=== PATIENT | male | born 1960 | race Caucasian/White ===

== ENCOUNTER 2019-11-21 08:47 | Outpatient (CLI) | payer MEDICARE, SELFPAY ==
--- NOTE | ~2019-11-21 | CT_ITS ---
EXAMINATION: CT chest w con DATE: 11/21/2019 09:29 INDICATION: Malignant neoplasm of the lung TECHNIQUE: Transaxial computed tomographic images of the chest were obtained after the administration of 75 cc of Omnipaque 350 intravenous contrast. The dose-length product (DLP) was 356.70 mGy-cm. Ite rative reconstruction was used. COMPARISON: 06/24/2019, 03/21/2019 FINDINGS: There are unchanged paramediastinal reticular opacities and air bronchograms of the right u pper lobe. There is stable volume loss in the right hemithorax. A small right pleural effusion is pre sent. There is mild increase in airspace opacity posteriorly in the right upper lobe, likely worsenin g atelectasis. The heart size is normal. There is no pneumothorax. There is been mild decrease in siz e of the previously described subcarinal lymph node which measures 1.1 cm in shortest axial dimension , previously 1.3 cm. Changes of sternotomy are again noted in the manubrium with nonunion and osteone crosis versus osteomyelitis of the right margin of the manubrium. A stone is present in the nondisten ded gallbladder. There is a stable 3.4 cm cyst with septation in the right kidney. Mild chronic thora cic compression fractures are unchanged. 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 IMPRESSION: 1. Stable chronic changes in the superior mediastinal aspect of the right upper lobe, consistent with treated malignancy. Reviewed, dictated and finalized at location A.
[2019-11-21 09:16] LABS: Estimated Glomerular Filt Rate > 60
== END 2019-11-21 08:48 | disposition home or self-care (01) ==
LOC: ANHIMG 08:50
PROVIDERS: PCP Internal Medicine; Visit Provider Internal Medicine Hematology & Oncology
DX: C34.90 Malignant neoplasm of unspecified part of unspecified bronchus or lung (principal)
CPT/HCPCS: 36415; 71260; Q9967

== ENCOUNTER 2019-11-28 10:37 | Outpatient (CLI) | payer MEDICARE, SELFPAY ==
[2019-11-28 10:54] LABS: Basophils Absolute Auto 0.1 K/mm3 (0.0-0.1); Basophils Percent Auto 0.8 % (0.2-1.2); Eosinophils Absolute Auto 0.3 K/mm3 (0-0.3); Eosinophils Percent Auto 3.2 % (0-4.4); Hematocrit 45.7 % (42.0-52.0); Hemoglobin 14.4 g/dL (14.0-18.0); Immature Granulocyte Absolute 0.03 K/mm3 (0.00-0.031); Immature Granulocyte Percent A 0.3 % (0-0.5); Lymphocytes Absolute Auto 2.15 K/mm3 (0.9-3.2); Lymphocytes Percent Auto 24.4 % (18.3-44.2); Mean Corpuscular HGB Conc 31.5 g/dl (32-36); Mean Corpuscular Hemoglobin 29.7 pg (26-34); Mean Corpuscular Volume 94.2 fl (80-100); Mean Platelet Volume 9.3 fl (7.4-10.4); Monocytes Absolute Auto 0.8 K/mm3 (0.1-0.6); Monocytes Percent Auto 8.5 % (2.6-8.5); Neutrophils Absolute Auto 5.5 K/mm3 (1.3-6.7); Neutrophils Percent Auto 62.8 % (45.5-73.1); Platelet Count Result 217 k/mm3 (150-375); Red Blood Count 4.85 M/mm3 (4.6-6.20); Red Cell Distribution Width 17.2 % (11.5-14.5); White Blood Count 8.8 K/mm3 (4.5-10.0)
[2019-11-28 10:58] LABS: Blood Urea Nitrogen 15 mg/dL (8-26); Carbon Dioxide 29 mmol/L (22-30); Chloride 100 mmol/L (98-109); Estimated Glomerular Filt Rate > 60; Glucose 134 mg/dL (70-105); Potassium 4.7 mmol/L (3.5-4.9); Sodium 140 mmol/L (138-146)
[2019-11-28 12:34] LABS: Alanine Aminotransferase 22 U/L (4-50); Alkaline Phosphatase 167 U/L (38-126); Aspartate Amino Transferase 29 U/L (17-59); Bilirubin,Total 0.6 mg/dL (0.2-1.3); Blood Urea Nitrogen 15 mg/dL (9-20); Calcium 9.7 mg/dL (8.4-10.2); Carbon Dioxide 32 mmol/L (22-30); Chloride 102 mmol/L (98-107); Estimated Glomerular Filt Rate > 60; Glucose 135 mg/dL (75-110); Potassium 4.6 mmol/L (3.4-5.0); Sodium 138 mmol/L (137-145)
== END 2019-11-28 10:38 | disposition home or self-care (01) ==
PROVIDERS: PCP Internal Medicine; Visit Provider Internal Medicine Hematology & Oncology
DX: C34.90 Malignant neoplasm of unspecified part of unspecified bronchus or lung (principal)
CPT/HCPCS: 36415; 80048; 80053; 85025

== ENCOUNTER 2020-03-19 16:11 | Outpatient (RCR) | payer MEDICARE, MEDICAID, SELFPAY ==
[2020-03-19 17:42] LABS: Alanine Aminotransferase 34 U/L (4-50); Albumin Level 3.1 g/dL (3.5-5.1); Alkaline Phosphatase 272 U/L (38-126); Anion Gap 4 mmol/L (8-16); Aspartate Amino Transferase 36 U/L (17-59); Blood Urea Nitrogen 19 mg/dL (9-20); Calcium 9.3 mg/dL (8.4-10.2); Carbon Dioxide 32 mmol/L (22-30); Chloride 102 mmol/L (98-107); Cholesterol 105 mg/dL (0-200); Estimated Glomerular Filt Rate > 60; Glucose 102 mg/dL (75-110); HDL Direct 13 mg/dL; Potassium 3.4 mmol/L (3.4-5.0); Sodium 138 mmol/L (137-145); Triglycerides 83 mg/dL (<150)
[2020-03-19 17:57] LABS: LDL Cholesterol Direct 74 mg/dL
[2020-03-19 18:13] LABS: Prostate Specific Antigen 0.7 ng/mL (< OR = 4.0)
== END 2020-06-17 23:59 | disposition home or self-care (01) ==
LOC: ANHLAB 16:11
PROVIDERS: PCP Internal Medicine; Visit Provider Internal Medicine
DX: E78.2 Mixed hyperlipidemia (principal); E03.9 Hypothyroidism, unspecified; I95.9 Hypotension, unspecified; J44.9 Chronic obstructive pulmonary disease, unspecified; Z12.5 Encounter for screening for malignant neoplasm of prostate
CPT/HCPCS: 36415; 80053; 80061; 84153; 84443; G0103

== ENCOUNTER 2020-05-14 09:03 | Outpatient (CLI) | payer MEDICARE, SELFPAY ==
--- NOTE | ~2020-05-14 | CT_ITS ---
EXAMINATION:CT chest w con DATE: 05/14/2020 09:52 INDICATION: Lung cancer. TECHNIQUE: Computed tomography (CT) of the chest was performed with 75 mL Omnipaque 350 intravenous c ontrast. Automated exposure control and iterative reconstruction technique were employed. The dose-le ngth product (DLP) was 204.68 mGy-cm. COMPARISON: Chest CT 11/21/2019, 08/21/16 FINDINGS: There is mild emphysema. There is mild atelectasis in lingula. There is volume loss of righ t lung. There are extensive airspace opacities with cavitation in right upper lobe. There are airspac e opacities with volume loss and architectural distortion in right middle lobe medially. There is mil d peripheral atelectasis in right lower lobe. There is a small right pleural effusion. The heart size is normal. There are coronary artery calcifications. There is a small pericardial effusion. There is ill-defined soft tissue in the mediastinum on the right and in the right anterior chest wall. There is mild stenosis of the superior vena cava. 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 There is a 3.9 cm cyst in right kidney. There is mild periportal lymphadenopat hy. There are old healed right rib fractures. Again seen are changes of sternotomy of the manubrium o f the sternum with nonunion. IMPRESSION: 1. Worsened airspace opacities with volume loss and cavitation in right upper lobe, consistent with r adiation fibrosis without or with superimposed infection. Stable radiation fibrosis in right lower lo be and right middle lobe. 2. Stable large distribution of ill-defined soft tissue attenuation in the right side of the mediasti num. Large distribution of ill-defined soft tissue attenuation in the adjacent right anterior chest w all with mild worsening inferiorly. These findings may be predominantly changes of radiation therapy without or with superimposed infection. Note that the volume of abnormal tissue in the anterior right mediastinum is smaller than on the pretreatment imaging, consistent with improvement in the neoplasm component. Reviewed, dictated and finalized at location B. GENCY VETERINARY ASSISTANT IMPRESSION: 1. Worsened airspace opacities with volume loss and cavitation in right upper l obe, consistent with radiation fibrosis without or with superimposed infection. Stable radiation fibrosis in right lower lobe and right middle lobe. 2. Stable large distribution of ill-defined soft tissue attenuation in the righ t side of the mediastinum. Large distribution of ill-defined soft tissue attenu ation in the adjacent right anterior chest wall with mild worsening inferiorly. These findings may be predominantly changes of radiation therapy without or wi th superimposed infection. Note that the volume of abnormal tissue in the anter ior right mediastinum is smaller than on the pretreatment imaging, consistent w ith improvement in the neoplasm component.
[2020-05-14 09:41] LABS: Estimated Glomerular Filt Rate > 60
== END 2020-05-14 09:04 | disposition home or self-care (01) ==
PROVIDERS: PCP Internal Medicine; Visit Provider Internal Medicine Hematology & Oncology
DX: C34.90 Malignant neoplasm of unspecified part of unspecified bronchus or lung (principal); J43.9 Emphysema, unspecified; J90 Pleural effusion, not elsewhere classified; I25.10 Atherosclerotic heart disease of native coronary artery without angina pectoris; J98.11 Atelectasis; I87.1 Compression of vein; N28.1 Cyst of kidney, acquired; I82.290 Acute embolism and thrombosis of other thoracic veins
CPT/HCPCS: 71260; Q9967

== ENCOUNTER 2020-05-26 08:58 | Outpatient (CLI) | payer MEDICARE, SELFPAY ==
[2020-05-26 09:14] LABS: Basophils Absolute Auto 0.1 K/mm3 (0.0-0.1); Basophils Percent Auto 0.8 % (0.2-1.2); Eosinophils Absolute Auto 0.2 K/mm3 (0-0.3); Eosinophils Percent Auto 2.4 % (0-4.4); Hematocrit 41.9 % (42.0-52.0); Hemoglobin 13.2 g/dL (14.0-18.0); Immature Granulocyte Absolute 0.04 K/mm3 (0.00-0.031); Immature Granulocyte Percent A 0.5 % (0-0.5); Lymphocytes Absolute Auto 1.61 K/mm3 (0.9-3.2); Lymphocytes Percent Auto 21.8 % (18.3-44.2); Mean Corpuscular HGB Conc 31.5 g/dl (32-36); Mean Corpuscular Hemoglobin 31.5 pg (26-34); Mean Platelet Volume 9.4 fl (7.4-10.4); Monocytes Absolute Auto 0.6 K/mm3 (0.1-0.6); Monocytes Percent Auto 8.1 % (2.6-8.5); Neutrophils Absolute Auto 4.9 K/mm3 (1.3-6.7); Neutrophils Percent Auto 66.4 % (45.5-73.1); Platelet Count Result 207 k/mm3 (150-375); Red Blood Count 4.19 M/mm3 (4.6-6.20); Red Cell Distribution Width 16.1 % (11.5-14.5); White Blood Count 7.4 K/mm3 (4.5-10.0)
[2020-05-26 09:18] LABS: Blood Urea Nitrogen 14 mg/dL (8-26); Carbon Dioxide 33 mmol/L (22-30); Chloride 101 mmol/L (98-109); Estimated Glomerular Filt Rate > 60; Glucose 89 mg/dL (70-105); Potassium 4.8 mmol/L (3.5-4.9); Sodium 143 mmol/L (138-146)
[2020-05-26 12:35] LABS: Alanine Aminotransferase 27 U/L (4-50); Albumin Level 3.7 g/dL (3.5-5.1); Alkaline Phosphatase 224 U/L (38-126); Anion Gap 3 mmol/L (8-16); Aspartate Amino Transferase 36 U/L (17-59); Bilirubin,Total 0.7 mg/dL (0.2-1.3); Blood Urea Nitrogen 15 mg/dL (9-20); Calcium 9.2 mg/dL (8.4-10.2); Carbon Dioxide 36 mmol/L (22-30); Chloride 103 mmol/L (98-107); Estimated Glomerular Filt Rate > 60; Glucose 90 mg/dL (75-110); Potassium 4.7 mmol/L (3.4-5.0); Sodium 142 mmol/L (137-145)
== END 2020-05-26 08:59 | disposition home or self-care (01) ==
LOC: ANHLAB 09:00
PROVIDERS: PCP Internal Medicine; Visit Provider Internal Medicine Hematology & Oncology
DX: C34.90 Malignant neoplasm of unspecified part of unspecified bronchus or lung (principal)
CPT/HCPCS: 36415; 80048; 80053; 85025

== ENCOUNTER 2020-06-15 12:17 | Outpatient (CLI) | payer MEDICARE, MEDICAID, SELFPAY ==
[2020-06-15 13:42] LABS: Prostate Specific Antigen 0.9 ng/mL (< OR = 4.0)
== END 2020-06-15 12:18 | disposition home or self-care (01) ==
PROVIDERS: PCP Internal Medicine; Visit Provider Internal Medicine
DX: Z12.5 Encounter for screening for malignant neoplasm of prostate (principal); E03.9 Hypothyroidism, unspecified
CPT/HCPCS: 36415; 84153; 84443; G0103

== ENCOUNTER 2020-08-23 11:49 | Outpatient (CLI) | payer MEDICARE, MEDICAID, SELFPAY ==
--- NOTE | ~2020-08-23 | XR_ITS ---
EXAMINATION: XR abdomen/kub 1V EXAM DATE: 08/23/2020 12:15 INDICATION: R14.0 - Abdominal distension (gaseous) times 9 days. TECHNIQUE: Frontal projection(s) of the abdomen for interpretation. Comparison is made to prior exami nation from 02/20/2017. FINDINGS: There is expected amount of colonic stool and gas. No small bowel dilation, nonobstructiv e bowel gas pattern. Possible punctate bilateral nephrolithiasis. There is no organomegaly suspect ed. Right basilar scarring/atelectasis. Hardware in the left hip. IMPRESSION: Possible punctate nephrolithiasis. Expected amount of colonic contents. Reviewed, dictated and finalized at location A. ING IN HAND IMPRESSION: Possible punctate nephrolithiasis. Expected amount of colonic cont ents.
== END 2020-08-23 11:50 | disposition home or self-care (01) ==
LOC: ANHIMG 11:58
PROVIDERS: PCP Internal Medicine; Visit Provider Internal Medicine
DX: R14.0 Abdominal distension (gaseous) (principal)
CPT/HCPCS: 74018

== ENCOUNTER 2020-08-29 08:43 | Emergency (ER) | payer MEDICARE, MEDICAID, SELFPAY ==
--- NOTE | ~2020-08-29 | CT_ITS ---
EXAMINATION: CT abdomen pelvis w con DATE: 08/29/2020 10:08 INDICATION: Abdominal pain and distention. Constipation. TECHNIQUE: Computed tomography (CT) of the abdomen and pelvis was performed with 100 cc Omnipaque 350 intravenous contrast. Automated exposure control and iterative reconstruction technique were employe d. Exam dose: 755.52 mGy-cm total exam DLP. COMPARISON: 10/19/2017 CT chest abdomen pelvis 08/23/2020 KUB FINDINGS: The left lower lung is clear. There is compressive atelectasis in the right lower lung involving middle and lower lobes due to larg e right pleural effusion. There is mild ascites. There is surface nodularity of liver suggesting cirrhosis. No hepatic space-oc cupying mass lesion is detected. Spleen is upper limits of normal size. No pancreatic mass lesion, calcification or pancreatic duct di latation. Cholelithiasis. Borderline thickening of the gallbladder wall. No bile duct or pancreatic duct dilata tion is evident. However there are distal common bile duct calculi. Normal morphology of the adrenal glands. Multilocular up to approximately 3.8 cm upper pole right renal cyst. Approximately 2 mm nonobstructing right renal calculus. Approximately 5 nonobstructing left renal calculi, measuring 5 mm the left. No ureteral calculus or hydroureteronephrosis. Prostate enlargement and prostate calcifications. There is mild diffuse bladder wall thickening. Small fat-containing left inguinal hernia. There is atherosclerotic calcification of the abdominal aorta but no aneurysm. No intraperitoneal or retroperitoneal or pelvic mass lesion or adenopathy. There is nonspecific prominent soft tissue thickening of the wall of the gastric antrum There is diverticulosis of left and right colon; no CT evidence diverticulitis. There are nondilated fluid containing small bowel segments and small bowel air-fluid levels, which ma y be due to mild adynamic ileus or enteritis. No bowel obstruction, bowel wall thickening, pneumatosi s or intraperitoneal free air. Intramedullary device in left femur. Included skeletal structures are otherwise unremarkable. IMPRESSION: Choledocholithiasis Cholelithiasis Mild ascites Cirrhosis Nonspecific thickening of the wall of the gastric antrum; consider follow-up imaging and perhaps endo scopy as clinically appropriate Nondilated fluid containing small bowel segments and air-fluid levels which may be due to mild adynam ic ileus or enteritis Diverticulosis of left and right colon 3.8 cm upper pole right renal multilocular cyst Bilateral nonobstructive nephrolithiasis Reviewed, dictated and finalized at Location [facility]. Reviewed, dictated and finalized at location A. UNITY AFFAIRS MANAGER IMPRESSION: Choledocholithiasis Cholelithiasis Mild ascites Cirrhosis Nonspecific thickening of the wall of the gastric antrum; consider follow-up im aging and perhaps endoscopy as clinically appropriate Nondilated fluid containing small bowel segments and air-fluid levels which may be due to mild adynamic ileus or enteritis Diverticulosis of left and right colon 3.8 cm upper pole right renal multilocular cyst Bilateral nonobstructive nephrolithiasis
[2020-08-29 08:48] VITALS: BP 112/64; PULSE 103; RESP 18; TEMP 36.1; O2SAT 98
--- NOTE | 2020-08-29 08:52 | ED.ABDPAIN ---
HPI - Abdominal Pain General Chief Complaint: Abdominal Pain Stated Complaint: bowel issues Time Seen by Provider: 08/29/20 08:51 History of Present Illness HPI narrative: 60 yo male w/ h/o lung cancer presents to the ED for constipation. He reports that for the past 15 days he has felt bloated and had difficulty having a bowel movement. He says that for several days he was not able to pass flatus or burp either. He has been on miralax. He did have a very small watery bowel movement this morning, which provided a small amount of temporary relief. Related Data Home Medications Medication Instructions Recorded Confirmed apple cider vinegar 300 mg PO DAILY 04/30/19 08/29/20 ascorbic acid (vitamin C) 100 mg PO DAILY 04/30/19 08/29/20 ibuprofen 200 mg PO Q6H PRN 04/30/19 08/29/20 gp-ea-RZ-vit F-alamz-[id number]-coQ10 1 cap PO DAILY 04/30/19 08/29/20 [Daily Multivitamin] ipratropium 0.5 mg-albuterol 3 mg 3 ml INHALATION Q4H PRN 08/05/19 08/29/20 (2.5 mg base)/3 mL nebulization soln arginine HCl (L-arginine) 1,000 mg 1,000 mg PO DAILY 05/12/20 08/29/20 tablet atorvastatin 20 mg PO DAILY 08/29/20 08/29/20 levothyroxine 150 mcg PO DAILY 08/29/20 08/29/20 Allergies Allergy/AdvReac Type Severity Reaction Status Date / Time No Known Allergies Allergy Verified 08/29/20 08:56 Review of Systems Review of Systems: All systems reviewed & are unremarkable except as noted in HPI and below Constitutional: Constitutional: Denies fever(s) Eyes: Eyes: Reports no additional eye complaints ENT: Reports system reviewed and no additional complaints, except as documented Cardiovascular: Cardiovascular: Denies chest pain Respiratory: Comments: HART Gastrointestinal: Gastrointestinal: Reports bloating, Reports constipation and Denies vomiting Genitourinary: Genitourinary: Denies hematuria and Denies dysuria Neurologic: Denies dizziness PMFSH Past Medical History Medical History Abscess of chest Chronic obstructive pulmonary disease, unspecified Hypothyroidism Mixed hyperlipidemia Nicotine dependence, other tobacco product, uncomplicated Non-small cell lung cancer POOJA (obstructive sleep apnea) Surgical History Surgical History History of lung surgery Family History Family History Father Diabetes mellitus Family history of Alzheimer's disease Mother Hypertension Family history of chronic obstructive pulmonary disease Family history of sleep apnea Family history of malignant neoplasm Sibling Patient's sister is in good health Social History Social History Smoking packs per day: 1 Smoking cigarettes per day: 20.0 Smoking status: Current every day smoker (pack a day) Exam Const: General: no acute distress, alert and ill appearing Orientation/consciousness: patient oriented x3 HENMT: Head: normal to inspection Resp: Effort & Inspection: normal respiratory effort Auscultation: crackles on the right in the lower lung weldon Cardio: Rate: regular rate Rhythm: regular rhythm GI: Inspection: distended GI Palp: No Tenderness to palpation present (GI) and No Guarding due to palpation present (GI) Skin: General skin exam: normal color Neuro: General: patient oriented x3, moves all extremities, no focal motor deficits and CN's II-XI intact bilaterally Speech: normal speech Gait exam (Neuro): Normal gait present Extrem: General: normal to inspection Course Course Emergency Course: I spoke with Dr. Cantor about the patient's results. He suggested a surgical consult and hospital admission. I could not find a reason to consult surgery, but I did contact Dr. Pineda. He suggested Reglan, tap water enema, and magnesium citrate. He did not believe that there was necessarily a re
[2020-08-29 09:25] LABS: Basophils Absolute Auto 0.1 K/mm3 (0.0-0.1); Basophils Percent Auto 0.6 % (0.2-1.2); Eosinophils Absolute Auto 0.2 K/mm3 (0-0.3); Eosinophils Percent Auto 1.9 % (0-4.4); Hematocrit 35.2 % (42.0-52.0); Hemoglobin 11.2 g/dL (14.0-18.0); Immature Granulocyte Absolute 0.05 K/mm3 (0.00-0.031); Immature Granulocyte Percent A 0.5 % (0-0.5); Lymphocytes Absolute Auto 1.51 K/mm3 (0.9-3.2); Lymphocytes Percent Auto 16.2 % (18.3-44.2); Mean Corpuscular HGB Conc 31.8 g/dl (32-36); Mean Corpuscular Hemoglobin 31.4 pg (26-34); Mean Corpuscular Volume 98.6 fl (80-100); Mean Platelet Volume 9.5 fl (7.4-10.4); Monocytes Absolute Auto 0.9 K/mm3 (0.1-0.6); Monocytes Percent Auto 9.3 % (2.6-8.5); Neutrophils Absolute Auto 6.7 K/mm3 (1.3-6.7); Neutrophils Percent Auto 71.5 % (45.5-73.1); Platelet Count Result 240 k/mm3 (150-375); Red Blood Count 3.57 M/mm3 (4.6-6.20); Red Cell Distribution Width 15.7 % (11.5-14.5); White Blood Count 9.3 K/mm3 (4.5-10.0)
[2020-08-29 09:40] LABS: Alanine Aminotransferase 18 U/L (4-50); Albumin Level 3.5 g/dL (3.5-5.1); Alkaline Phosphatase 208 U/L (38-126); Anion Gap 3 mmol/L (8-16); Aspartate Amino Transferase 33 U/L (17-59); Bilirubin,Total 0.6 mg/dL (0.2-1.3); Blood Urea Nitrogen 14 mg/dL (9-20); Carbon Dioxide 33 mmol/L (22-30); Chloride 100 mmol/L (98-107); Estimated CRCL calculation 74 ml/min; Estimated Glomerular Filt Rate > 60; Glucose 97 mg/dL (75-110); Lipase 158 U/L (23-300); Potassium 4.4 mmol/L (3.4-5.0); Sodium 136 mmol/L (137-145)
[2020-08-29 09:50] LABS: Add Urine Microscopic? YES; Appearance Urine Clear (Clear); Bacteria Urine Trace /hpf; Bilirubin Urine Negative (Negative); Blood Urine Negative (Negative); Color Urine Yellow (Yellow); Glucose Urine UA Negative (Negative); Ketones Urine Negative (Negative); Leukocyte Esterase Ur Negative LEU/UL (Negative); Mucus Urine Rare /lpf; Nitrate Urine Negative (Negative); Protein Urine 1+ mg/dL (Negative); Specific Grav Ur 1.023 (1.001-1.035); WBC Urine 0-3 /hpf
[2020-08-29 10:20] VITALS: BP 111/66; PULSE 100; RESP 20; O2SAT 99
[2020-08-29 10:46] LABS: NT Pro B Type Natriuretic Pept 565 PG/ML (5-100)
[2020-08-29 11:58] VITALS: BP 100/68; PULSE 100; RESP 20; O2SAT 98
[2020-08-29] MEDS: METOCLOPRAMIDE HCL INJ 10 MG/2 ML VIAL IV PUSH (13:14)
[2020-08-29 13:16] VITALS: BP 106/77; PULSE 103; RESP 20; O2SAT 99
[2020-08-29] MEDS: MAGNESIUM CITRATE 300 ML BTL PO (14:15)
[2020-08-29 15:33] VITALS: BP 102/78; PULSE 99; RESP 20; O2SAT 99
== END 2020-08-29 15:35 | disposition home or self-care (01) ==
PROVIDERS: Emergency Provider Emergency Medicine; PCP Internal Medicine
DX: K56.0 Paralytic ileus (principal); J44.9 Chronic obstructive pulmonary disease, unspecified; E03.9 Hypothyroidism, unspecified; E78.2 Mixed hyperlipidemia; G47.33 Obstructive sleep apnea (adult) (pediatric); Z85.118 Personal history of other malignant neoplasm of bronchus and lung; F17.210 Nicotine dependence, cigarettes, uncomplicated; K80.50 Calculus of bile duct without cholangitis or cholecystitis without obstruction; K80.20 Calculus of gallbladder without cholecystitis without obstruction; R18.8 Other ascites; K74.60 Unspecified cirrhosis of liver; K57.90 Diverticulosis of intestine, part unspecified, without perforation or abscess without bleeding; N28.1 Cyst of kidney, acquired; N20.0 Calculus of kidney
CPT/HCPCS: 36415; 74177; 80053; 81001; 83690; 83880; 85025; 96374; 99284; A9270; J2765; Q9967

== ENCOUNTER 2020-09-14 09:07 | Outpatient (CLI) | payer MEDICARE, MEDICAID, SELFPAY ==
--- NOTE | ~2020-09-14 | XR_ITS ---
EXAMINATION: XR UGIAC w barium swallow EXAM DATE: 09/14/2020 09:51 INDICATION: R93.5 - Abnormal findings on diagnostic imaging of other abdomen, CT dated 08/29/2020. Blo ating. TECHNIQUE: Limited single and double contrast barium esophagram and upper GI examination was performe d according to patient's ability (difficulty positioning on table and became short of breath length d own). The DAP for this procedure was 2.0 Gycm2. Correlation is made to CT abdomen 08/29/2020. FINDINGS: The pharynx is symmetric and without evidence of mass lesion or mucosal irregularity. Ther e is no esophageal stricture, diverticulum or mass identified. Gastroesophageal junction is unremark able. Gastroesophageal reflux was demonstrated on examination. There is gastric wall thickening, ulceration along the antrum superiorly with contained ulceration ca vity measuring about 1 cm in size. Differential diagnosis includes peptic ulcer disease, primary shahrzad fabiana cancer and metastatic disease. IMPRESSION: 1. Gastric antral wall thickening, deep ulceration. Malignancy and peptic ulcer disease are equally p ossible based on imaging. Please clinically correlate, consider endoscopy. 2. Gastroesophageal reflux. Reviewed, dictated and finalized at location A. IMPRESSION: 1. Gastric antral wall thickening, deep ulceration. Malignancy and peptic ulcer disease are equally possible based on imaging. Please clinically correlate, co nsider endoscopy. 2. Gastroesophageal reflux.
== END 2020-09-14 09:08 | disposition home or self-care (01) ==
PROVIDERS: PCP Internal Medicine; Visit Provider Internal Medicine
DX: K21.9 Gastro-esophageal reflux disease without esophagitis (principal)
CPT/HCPCS: 74246

== ENCOUNTER 2020-09-25 13:26 | Outpatient (CLI) | payer MEDICARE, SELFPAY ==
[2020-09-25 14:14] LABS: Hematocrit 28.4 % (42.0-52.0); Hemoglobin 8.8 g/dL (14.0-18.0); Mean Corpuscular Hemoglobin 30.1 pg (26-34); Mean Corpuscular Volume 97.3 fl (80-100); Mean Platelet Volume 9.8 fl (7.4-10.4); Platelet Count Result 308 k/mm3 (150-375); Red Blood Count 2.92 M/mm3 (4.6-6.20); Red Cell Distribution Width 15.1 % (11.5-14.5); White Blood Count 9.3 K/mm3 (4.5-10.0)
[2020-09-25 14:23] LABS: Alanine Aminotransferase 13 U/L (4-50); Albumin Level 3.5 g/dL (3.5-5.1); Alkaline Phosphatase 206 U/L (38-126); Aspartate Amino Transferase 23 U/L (17-59); Bilirubin,Total 0.5 mg/dL (0.2-1.3)
== END 2020-09-25 13:27 | disposition home or self-care (01) ==
LOC: ANHLAB 13:34
PROVIDERS: PCP Internal Medicine
DX: R14.0 Abdominal distension (gaseous) (principal); K92.1 Melena
CPT/HCPCS: 36415; 80076; 85027

== ENCOUNTER 2020-10-08 10:35 | Outpatient (CLI) | payer MEDICARE, MEDICAID, SELFPAY ==
[2020-10-08 12:17] LABS: Hematocrit 28.6 % (42.0-52.0); Hemoglobin 8.8 g/dL (14.0-18.0); Mean Corpuscular HGB Conc 30.8 g/dl (32-36); Mean Corpuscular Hemoglobin 27.5 pg (26-34); Mean Corpuscular Volume 89.4 fl (80-100); Mean Platelet Volume 9.8 fl (7.4-10.4); Platelet Count Result 353 k/mm3 (150-375); Red Cell Distribution Width 15.1 % (11.5-14.5); White Blood Count 10.3 K/mm3 (4.5-10.0)
[2020-10-08 12:35] LABS: INR 1.2; Prothrombin Time 16.2 Seconds (11.1-14.7)
[2020-10-08 12:41] LABS: Alanine Aminotransferase 9 U/L (4-50); Albumin Level 3.7 g/dL (3.5-5.1); Alkaline Phosphatase 183 U/L (38-126); Aspartate Amino Transferase 23 U/L (17-59); Bilirubin,Total 0.7 mg/dL (0.2-1.3); Blood Urea Nitrogen 28 mg/dL (9-20); Calcium 8.8 mg/dL (8.4-10.2); Carbon Dioxide > 40 mmol/L (22-30); Chloride 85 mmol/L (98-107); Estimated Glomerular Filt Rate 56; Glucose 129 mg/dL (75-110); Potassium 3.6 mmol/L (3.4-5.0); Sodium 132 mmol/L (137-145)
[2020-10-08 12:44] LABS: Blood Urea Nitrogen 26 mg/dL (9-20); Calcium 8.8 mg/dL (8.4-10.2); Carbon Dioxide > 40 mmol/L (22-30); Chloride 86 mmol/L (98-107); Estimated Glomerular Filt Rate 56; Glucose 130 mg/dL (75-110); Potassium 3.6 mmol/L (3.4-5.0); Sodium 133 mmol/L (137-145)
[2020-10-08 13:54] LABS: Folic Acid > 20.0 ng/mL (2.76->20)
== END 2020-10-08 10:36 | disposition home or self-care (01) ==
PROVIDERS: PCP Internal Medicine; Referring Provider Internal Medicine Gastroenterology; Visit Provider Nurse Practitioner
DX: R60.9 Edema, unspecified (principal); K70.31 Alcoholic cirrhosis of liver with ascites
CPT/HCPCS: 29581; 36415; 80048; 80053; 82607; 82746; 85027; 85610

== ENCOUNTER 2020-10-19 13:25 | Outpatient (CLI) | payer MEDICARE, SELFPAY ==
[2020-10-19 14:11] LABS: Hematocrit 34.1 % (42.0-52.0); Hemoglobin 10.3 g/dL (14.0-18.0)
[2020-10-19 14:16] LABS: Anion Gap 3 mmol/L (8-16); Blood Urea Nitrogen 36 mg/dL (9-20); Calcium 10.2 mg/dL (8.4-10.2); Carbon Dioxide 39 mmol/L (22-30); Chloride 93 mmol/L (98-107); Estimated Glomerular Filt Rate 44; Glucose 110 mg/dL (75-110); Potassium 4.8 mmol/L (3.4-5.0); Sodium 135 mmol/L (137-145)
[2020-10-19 14:38] LABS: Iron 26 ug/dL (49-181)
[2020-10-19 14:47] LABS: Percent Iron Saturation 6 % (20-50)
== END 2020-10-19 13:26 | disposition home or self-care (01) ==
PROVIDERS: PCP Internal Medicine; Visit Provider Internal Medicine
DX: D64.9 Anemia, unspecified (principal); I89.0 Lymphedema, not elsewhere classified
CPT/HCPCS: 36415; 80048; 82728; 83540; 83550; 85014; 85018

== ENCOUNTER 2020-10-29 14:41 | Outpatient (CLI) | payer MEDICARE, SELFPAY ==
[2020-10-29 15:18] LABS: Hematocrit 31.6 % (42.0-52.0); Hemoglobin 9.3 g/dL (14.0-18.0); Mean Corpuscular HGB Conc 29.4 g/dl (32-36); Mean Corpuscular Hemoglobin 25.3 pg (26-34); Mean Corpuscular Volume 86.1 fl (80-100); Mean Platelet Volume 9.6 fl (7.4-10.4); Platelet Count Result 318 k/mm3 (150-375); Red Blood Count 3.67 M/mm3 (4.6-6.20); Red Cell Distribution Width 16.6 % (11.5-14.5); White Blood Count 10.8 K/mm3 (4.5-10.0)
[2020-10-29 15:31] LABS: Alanine Aminotransferase 15 U/L (4-50); Albumin Level 3.7 g/dL (3.5-5.1); Alkaline Phosphatase 327 U/L (38-126); Anion Gap 3 mmol/L (8-16); Aspartate Amino Transferase 36 U/L (17-59); Bilirubin,Total 0.8 mg/dL (0.2-1.3); Blood Urea Nitrogen 21 mg/dL (9-20); Calcium 10.7 mg/dL (8.4-10.2); Carbon Dioxide 33 mmol/L (22-30); Chloride 96 mmol/L (98-107); Estimated Glomerular Filt Rate > 60; Glucose 93 mg/dL (75-110); Potassium 4.8 mmol/L (3.4-5.0); Sodium 132 mmol/L (137-145)
== END 2020-10-29 14:42 | disposition home or self-care (01) ==
LOC: ANHLAB 14:45
PROVIDERS: PCP Internal Medicine; Visit Provider Internal Medicine Gastroenterology
DX: D50.8 Other iron deficiency anemias (principal)
CPT/HCPCS: 36415; 80053; 85027

== ENCOUNTER 2020-11-16 09:28 | Outpatient (CLI) | payer MEDICARE, MEDICAID, SELFPAY ==
--- NOTE | ~2020-11-16 | CT_ITS ---
EXAMINATION: CT diagnostic chest w con DATE: 11/16/2020 10:00 INDICATION: Lung cancer TECHNIQUE: Transaxial computed tomographic images of the chest were obtained after the administration of 75 cc of Omnipaque 350 intravenous contrast. The dose-length product (DLP) was 270.59 mGy-cm. Ite rative reconstruction was used. COMPARISON: 05/14/2020 FINDINGS: Volume loss, cavitation, and airspace opacities persist in the right upper lobe without sig nificant change. A small to moderate-sized right pleural effusion has increased in size. There are pl eural-based opacities of the right lower lobe. There is new erosion of the right fifth rib anteriorly at the costochondral junction with an approximately 7.4 x 4.8 cm fluid collection with peripheral en hancement in the right anterior chest wall. This reflects an increase in size of the previously descr ibed soft tissue attenuation seen anteriorly in the right anterior chest wall. 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 The heart size is carlos l. A 3.9 cm cyst is noted in the right kidney upper pole. There appears to be developing gastrohepati c ligament lymphadenopathy. IMPRESSION: 1. Enlarging area of fluid and soft tissue attenuation in the right anterior chest wall with erosion of the anterior right fifth rib. Findings could reflect infection versus treatment change. Fluid cirilo ection would be amenable to percutaneous sampling with caution to avoid overlying chest wall collater als. 2. Stable area of airspace opacity, volume loss, and cavitation of the right upper lobe, consistent w ith radiation fibrosis +/- superimposed infection. 3. Gastrohepatic ligament lymphadenopathy which may be reactive. 4. Increasing right pleural effusion with pleural-based opacities of the right lower lobe, possibly r ounded atelectasis. Attention on follow-up examination is recommended. Reviewed, dictated and finalized at location A. IMPRESSION: 1. Enlarging area of fluid and soft tissue attenuation in the right anterior ch est wall with erosion of the anterior right fifth rib. Findings could reflect i nfection versus treatment change. Fluid collection would be amenable to percuta neous sampling with caution to avoid overlying chest wall collaterals. 2. Stable area of airspace opacity, volume loss, and cavitation of the right up per lobe, consistent with radiation fibrosis +/- superimposed infection. 3. Gastrohepatic ligament lymphadenopathy which may be reactive. 4. Increasing right pleural effusion with pleural-based opacities of the right lower lobe, possibly rounded atelectasis. Attention on follow-up examination is recommended.
== END 2020-11-16 09:29 | disposition home or self-care (01) ==
LOC: ANHIMG 09:31
PROVIDERS: PCP Internal Medicine; Visit Provider Internal Medicine Hematology & Oncology
DX: C34.90 Malignant neoplasm of unspecified part of unspecified bronchus or lung (principal)
CPT/HCPCS: 71260; Q9967

== ENCOUNTER 2020-11-19 12:34 | Outpatient (CLI) | payer MEDICARE, SELFPAY ==
[2020-11-19 14:59] LABS: Iron 15 ug/dL (49-181)
[2020-11-19 15:19] LABS: Percent Iron Saturation 5 % (20-50)
== END 2020-11-19 12:35 | disposition home or self-care (01) ==
PROVIDERS: PCP Internal Medicine; Visit Provider Nurse Practitioner
DX: E61.1 Iron deficiency (principal)
CPT/HCPCS: 36415; 83540; 83550

== ENCOUNTER 2020-11-23 11:22 | Outpatient (CLI) | payer MEDICARE, SELFPAY ==
[2020-11-23 11:39] LABS: Basophils Absolute Auto 0.1 K/mm3 (0.0-0.1); Basophils Percent Auto 0.5 % (0.2-1.2); Eosinophils Absolute Auto 0.1 K/mm3 (0-0.3); Eosinophils Percent Auto 1.2 % (0-4.4); Hematocrit 30.6 % (42.0-52.0); Hemoglobin 9.1 g/dL (14.0-18.0); Immature Granulocyte Absolute 0.08 K/mm3 (0.00-0.031); Immature Granulocyte Percent A 0.7 % (0-0.5); Lymphocytes Absolute Auto 1.44 K/mm3 (0.9-3.2); Lymphocytes Percent Auto 12.6 % (18.3-44.2); Mean Corpuscular HGB Conc 29.7 g/dl (32-36); Mean Corpuscular Hemoglobin 23.9 pg (26-34); Mean Corpuscular Volume 80.5 fl (80-100); Mean Platelet Volume 9.6 fl (7.4-10.4); Monocytes Absolute Auto 1.2 K/mm3 (0.1-0.6); Monocytes Percent Auto 10.1 % (2.6-8.5); Neutrophils Absolute Auto 8.6 K/mm3 (1.3-6.7); Neutrophils Percent Auto 74.9 % (45.5-73.1); Platelet Count Result 367 k/mm3 (150-375); Red Cell Distribution Width 18.7 % (11.5-14.5); White Blood Count 11.5 K/mm3 (4.5-10.0)
[2020-11-23 11:44] LABS: Hypochromasia 2+ (NORMAL)
[2020-11-23 11:46] LABS: Blood Urea Nitrogen 18 mg/dL (8-26); Carbon Dioxide 33 mmol/L (22-30); Chloride 92 mmol/L (98-109); Estimated Glomerular Filt Rate > 60; Glucose 103 mg/dL (70-105); Potassium 4.8 mmol/L (3.5-4.9); Sodium 134 mmol/L (138-146)
[2020-11-23 12:45] LABS: Alanine Aminotransferase 15 U/L (4-50); Albumin Level 3.2 g/dL (3.5-5.1); Alkaline Phosphatase 339 U/L (38-126); Anion Gap 2 mmol/L (8-16); Aspartate Amino Transferase 22 U/L (17-59); Bilirubin,Total 0.6 mg/dL (0.2-1.3); Blood Urea Nitrogen 20 mg/dL (9-20); Calcium 9.5 mg/dL (8.4-10.2); Carbon Dioxide 36 mmol/L (22-30); Chloride 95 mmol/L (98-107); Estimated Glomerular Filt Rate > 60; Glucose 103 mg/dL (75-110); Potassium 4.9 mmol/L (3.4-5.0); Sodium 133 mmol/L (137-145)
[2020-11-23 17:22] LABS: Iron 23 ug/dL (49-181); Percent Iron Saturation 8 % (20-50)
[2020-11-23 18:18] LABS: Vitamin B12 > 1000.0 pg/mL (239-931)
== END 2020-11-23 11:23 | disposition home or self-care (01) ==
PROVIDERS: PCP Internal Medicine; Visit Provider Internal Medicine Hematology & Oncology
DX: C34.90 Malignant neoplasm of unspecified part of unspecified bronchus or lung (principal); D64.9 Anemia, unspecified
CPT/HCPCS: 36415; 80048; 80053; 82607; 82728; 83540; 83550; 85025

== ENCOUNTER 2020-11-26 08:15 | Outpatient (CLI) | payer MEDICARE, MEDICAID, SELFPAY ==
--- NOTE | ~2020-11-26 | PE_ITS ---
EXAMINATION: PET skull to mid thigh DATE: 11/26/2020 10:24 INDICATION: Right lung cancer. TECHNIQUE: Blood glucose level was 102 mg/dL. 7.778 mCi of 18-fluorodeoxyglucose (18-FDG) was adminis tered i.v. Low dose computed tomography (CT) images were acquired from the base of the brain to the p roximal thighs for attenuation correction and anatomic localization. Automated exposure control was e mployed. Dose-length product (DLP) was 648 mGy-cm. Positron emission tomography (PET) images were acq uired in the same distribution. COMPARISON: Chest CT 11/16/2020, 05/14/2020, 06/24/2019 FINDINGS: Head/neck: There is increased activity in the glottis and paraspinal muscles without CT correlate, li amaury physiologic. There are no pathologically enlarged lymph nodes. Chest: There is a moderate-sized loculated right pleural effusion. There is thick walled cavitation i nvolving the entire right upper lobe with mildly increased activity in the thick wall, likely predomi nantly secondary to radiation necrosis. There are airspace opacities in right middle lobe medially wi th volume loss and increased activity. There are airspace opacities and groundglass opacities in righ t lower lobe abutting the pleura without increased activity, likely predominantly atelectasis and sca rring. There is soft tissue and fluid involving the right anterior mediastinum and extending into the right anterior chest wall. There are defects of the anterior fifth and sixth ribs that may be surgic al defects or erosions from malignancy. There are areas of increased activity in the right anterior m ediastinum, right anterior chest wall, and right basilar parietal pleura. Abdomen/pelvis/proximal thighs: The liver demonstrates surface nodularity suspicious for cirrhosis. T here are gallstones in the gallbladder, which is normal in size. The spleen, pancreas, and adrenal gl ands are normal. There are enlarged venous collaterals in anterior abdominal, likely from chronic occ lusion of the left brachiocephalic vein. There is a chronic ill-defined mass in right kidney upper po le measuring approximately 2.6 cm without increased activity, likely benign. There are stones in the kidneys measuring up to 3 mm. The prostate is mildly enlarged. There are no dilated loops of bowel. T here is a small volume of ascites. There is soft tissue thickening at the umbilicus with increased ac tivity. There is gastrohepatic lymphadenopathy with increased activity. There are foci of increased a ctivity in the sigmoid colon without CT correlate. There is internal fixation of left femur. IMPRESSION: 1. Abnormal soft tissue in the right anterior mediastinum and right anterior chest wall with areas of increased activity that is contiguous with a moderate-sized loculated right pleural effusion, likely a combination of malignancy and changes of radiation therapy. 2. Small volume of ascites. Soft tissue thickening of the umbilicus with increased activity suggests malignant ascites. Foci of increased activity in the sigmoid colon may be physiologic or secondary to serosal metastases. 3. Gastrohepatic lymphadenopathy with increased activity, consistent with metastatic disease. Reviewed, dictated and finalized at location B. IMPRESSION: 1. Abnormal soft tissue in the right anterior mediastinum and right anterior ch est wall with areas of increased activity that is contiguous with a moderate-si zed loculated right pleural effusion, likely a combination of malignancy and ch anges of radiation therapy. 2. Small volume of ascites. Soft tissue thickening of the umbilicus with increa sed activity suggests malignant ascites. Foci of increased activity in the sigm oid colon may be physiologic or secondary to serosal metastases. 3. Gastrohepatic lymphadenopathy with in
[2020-11-26 08:33] LABS: Glucose Point of Care 102 mg/dl (65-105)
== END 2020-11-26 08:16 | disposition home or self-care (01) ==
LOC: ANHIMG 08:18
PROVIDERS: PCP Internal Medicine; Visit Provider Internal Medicine Hematology & Oncology
DX: Z03.89 Encounter for observation for other suspected diseases and conditions ruled out (principal); C34.01 Malignant neoplasm of right main bronchus; Z51.81 Encounter for therapeutic drug level monitoring; Z79.899 Other long term (current) drug therapy; J90 Pleural effusion, not elsewhere classified
CPT/HCPCS: 78815; 82948; A9552

== ENCOUNTER 2020-12-07 07:31 | Outpatient (CLI) | payer MEDICARE, MEDICAID, SELFPAY ==
--- NOTE | ~2020-12-07 | US_ITS ---
EXAMINATION: US paracentesis abd w/image DATE: 12/07/2020 10:03 INDICATION: Ascites. TECHNIQUE: The procedure and its risks, benefits, and alternatives were discussed with the patient. P otential risks discussed included bleeding and infection. The skin was prepped and draped in sterile fashion. 1% lidocaine was used for local anesthesia. Under ultrasound guidance, a 5 Fr catheter with trochar was advanced into the ascites in the right lower quadrant. Fluid was aspirated. The catheter was removed, and a dressing was applied. There were no immediate complications. FINDINGS: Ultrasound images demonstrate ascites and the catheter within the fluid. IMPRESSION: 1. Successful ultrasound-guided paracentesis yielding 650 mL of cloudy, yellow fluid. Reviewed, dictated and finalized at location A.
[2020-12-07 08:17] LABS: Basophils Percent Auto 0.3 % (0.2-1.2); Eosinophils Absolute Auto 0.1 K/mm3 (0-0.3); Eosinophils Percent Auto 0.7 % (0-4.4); Hematocrit 32.7 % (42.0-52.0); Hemoglobin 9.4 g/dL (14.0-18.0); Immature Granulocyte Percent A 0.8 % (0-0.5); Mean Corpuscular HGB Conc 28.7 g/dl (32-36); Mean Corpuscular Volume 83.6 fl (80-100); Mean Platelet Volume 9.1 fl (7.4-10.4); Monocytes Absolute Auto 1.3 K/mm3 (0.1-0.6); Neutrophils Absolute Auto 9.5 K/mm3 (1.3-6.7); Neutrophils Percent Auto 78.2 % (45.5-73.1); Platelet Count Result 345 k/mm3 (150-375); Red Blood Count 3.91 M/mm3 (4.6-6.20); Red Cell Distribution Width 21.5 % (11.5-14.5); White Blood Count 12.2 K/mm3 (4.5-10.0)
[2020-12-07 08:40] LABS: Anisocytosis 1+ (NORMAL); Hypochromasia 1+ (NORMAL); Platelet Estimate Adequate (Adequate)
[2020-12-07 09:22] LABS: INR 1.2; Prothrombin Time 15.3 Seconds (11.1-14.7)
[2020-12-10 14:50] LABS: Glucose Peritoneal Fluid 108 mg/dL; LDH Peritoneal Fluid 55 U/L (<63); Total Protein Peritoneal Fluid 3.2 g/dL
== END 2020-12-07 07:32 | disposition home or self-care (01) ==
PROVIDERS: Radiology Diagnostic Radiology; PCP Internal Medicine; Visit Provider Internal Medicine Hematology & Oncology
DX: R18.8 Other ascites (principal)
CPT/HCPCS: 36415; 49083; 82945; 83615; 84157; 85025; 85610; 88104; 88108; 88305

== ENCOUNTER 2020-12-11 09:37 | Outpatient (CLI) | payer MEDICARE, MEDICAID, SELFPAY ==
--- NOTE | ~2020-12-11 | US_ITS ---
EXAMINATION: US biopsy st neck thorax DATE: 12/11/2020 12:14 INDICATION: Right chest wall mass. TECHNIQUE: The procedure including the risks, benefits, and alternatives was discussed with the patie nt. Risks discussed included bleeding and infection. The patient understood the risks and agreed to p roceed. The skin overlying the right chest was prepped and draped in usual sterile fashion. Anesthet ic was administered with 1% lidocaine subcutaneously. An 18 gauge core biopsy needle was then used t o obtain 3 core biopsy specimens under continuous sonographic guidance. The entry site was cleaned an d dressed. There were no immediate complications. FINDINGS: Ultrasound images demonstrate the needle in the thick wall of a large cystic mass in right anterior chest wall. IMPRESSION: 1. Ultrasound-guided core needle biopsy of a right anterior chest wall mass. Reviewed, dictated and finalized at location A.
== END 2020-12-11 09:38 | disposition home or self-care (01) ==
LOC: ANHIMG 10:02
PROVIDERS: PCP Internal Medicine; Visit Provider Internal Medicine Hematology & Oncology
DX: C76.1 Malignant neoplasm of thorax (principal)
CPT/HCPCS: 20206; 76942; 88305; 88342

== ENCOUNTER 2020-12-28 11:15 | Outpatient (CLI) | payer MEDICARE, SELFPAY ==
[2020-12-30 11:26] LABS: Ceruloplasmin 47 mg/dL (18-36)
[2020-12-31 10:32] LABS: Actin Antibody (IgG) <20 U (<20)
[2020-12-31 22:47] LABS: Mitochondrial (M2) Ab (IgG) <=20.0 U (<=20.0)
[2021-01-01 17:41] LABS: Alpha Fetoprotein Tumor Marker 0.9 ng/mL (<6.1)
== END 2020-12-28 11:16 | disposition home or self-care (01) ==
PROVIDERS: PCP Internal Medicine; Visit Provider Internal Medicine
DX: R79.89 Other specified abnormal findings of blood chemistry (principal); R74.8 Abnormal levels of other serum enzymes; R93.2 Abnormal findings on diagnostic imaging of liver and biliary tract; E03.9 Hypothyroidism, unspecified
CPT/HCPCS: 36415; 82104; 82105; 82390; 82728; 83516; 83520; 84443; 86038

== ENCOUNTER 2021-01-06 07:19 | Outpatient (RCR) | payer MEDICARE, MEDICAID, SELFPAY ==
[2020-10-08 10:37] VITALS: BMI 26.1
== END 2021-01-06 23:59 | disposition home or self-care (01) ==
LOC: ANHWOC 07:19
PROVIDERS: PCP Internal Medicine; Visit Provider Internal Medicine
DX: L97.909 Non-pressure chronic ulcer of unspecified part of unspecified lower leg with unspecified severity (principal)
CPT/HCPCS: 29581; 99212; G0463

== ENCOUNTER 2021-01-21 07:30 | Outpatient (RCR) | payer MEDICARE, MEDICAID, SELFPAY ==
[2021-01-07 00:05] VITALS: BMI 26.1
== END 2021-02-04 12:22 | disposition home or self-care (01) ==
LOC: ANHWOC 07:30
PROVIDERS: PCP Internal Medicine; Visit Provider Internal Medicine
DX: L97.909 Non-pressure chronic ulcer of unspecified part of unspecified lower leg with unspecified severity (principal)
CPT/HCPCS: 29581; 99212; G0463

== ENCOUNTER 2021-01-25 10:00 | Outpatient (RCR) | payer MEDICARE, MEDICAID, SELFPAY ==
--- NOTE | 2020-12-23 09:17 | PDRADONCFUV ---
Assessment/Plan - Assessment Progressing, painful, biopsy-proven right anterior chest wall recurrence - Plan I had a detailed discussion with Mr. Leslie regarding the role of radiation therapy in the palliation of his painful chest wall mass. We discussed the possible acute side effects of radiotherapy including esophagitis, fatigue and skin irritation, as well as the possible but unlikely late complications including heart damage, rib injury and pneumonitis. I have reviewed the prior radiation weldon with which there will be significant overlap. Due to the resultant high cumulative dose, there is risk of radiation necrosis and even ulceration of the chest wall. However, the benefit of palliating his pain and shrinking the chest wall tumor may outweigh that risk. I recommend proceeding with a 10-fraction course of palliative radiotherapy to a total of 30 Gy over a couple of weeks. While radiation therapy is likely to alleviate his pain to some degree, his overall survival will likely not be affected and systemic therapy will be the mainstay of his treatment. After our discussion, Mr. Leslie expressed a desire to proceed with radiotherapy as outlined. He will return in the upcoming days for CT simulation and radiation treatment planning. Time spent with patient and reviewing medical record, including imaging and laboratory findings as well as notes from collaborating physicians: 45 minutes Follow Up Note - Date/Time 12/23/20 09:17 - Identifying Data Anastacio Leslie is a 60 y.o. 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 He completed a course of chemoradiotherapy between 10/17/2016 and 12/01/2016. He now has a progressing, painful, biopsy-proven right anterior chest wall recurrence in the setting of FDG-avid gastrohepatic lymphadenopathy. He presents for consideration of palliative radiation therapy. - Interval History Mr. Leslie has not been seen here since 02/24/2017. He has been followed regularly, however, with Dr. Raya. He has been experiencing right chest wall pain and an enlarging right chest wall mass and underwent the following workup: 11/16/2020: CT scan of the chest showed an enlarging area of fluid and soft tissue attenuation in the right anterior chest wall with erosion of the anterior right fifth rib. He had stable area of airspace opacity, volume loss, and cavitation of the right upper lobe, consistent with radiation fibrosis +/- superimposed infection. There was gastrohepatic ligament lymphadenopathy which may be reactive and increasing right pleural effusion with pleural-based opacities of the right lower lobe, possibly rounded atelectasis. 11/26/2020: PET/CT scan showed abnormal soft tissue in the right anterior mediastinum and right anterior chest wall with areas of increased activity, contiguous with a moderate-sized loculated right pleural effusion, likely a combination of malignancy and changes of radiation therapy. There was small volume of ascites, possibly malignant given soft tissue thickening of the umbilicus with increased activity. Gastrohepatic lymphadenopathy with increased activity, consistent with metastatic disease. 12/07/2020: Ultrasound-guided paracentesis was negative for malignant cells; scant cellularity. 12/08/2020: Colonoscopy negative for malignancy. 12/11/2020: Underwent ultrasound-guided biopsy of right chest wall mass which revealed recurrent squamous cell carcinoma Currently, he rates his pain 4 out of 10 and is taking Tramadol. He has frequent abdominal pain but denies pain at present. Oncologic History: October 2016: Completed neoadjuvant concurrent chemoradiotherapy with cisplatin and VENEER STAPLER-16. 01/30/2017: Status post thoracotomy and intended resection of the tumor but was unresectable due to invasion of superior
[2020-12-23 11:18] VITALS: BMI 22.5
[2020-12-23 11:24] VITALS: BP 96/56; PULSE 105; RESP 20; TEMP 36.8; O2SAT 100
--- NOTE | 2020-12-29 10:23 | PDRADONCFUV ---
Assessment/Plan - Assessment Ready to start radiotherapy. - Plan 1. Proceed with CT simulation and radiation treatment planning. 2. Plan for 15 fractions over 3 weeks to 37.5 Gy - IMRT will be required given the overlapping prior radiotherapy. 3. Informed consent obtained. Time spent with patient and reviewing medical record, including imaging and laboratory findings as well as notes from collaborating physicians: 20 minutes Follow Up Note - Date/Time 12/29/20 10:23 - Identifying Data Anastacio Leslie is a 60 y.o. 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 He completed a course of chemoradiotherapy between 10/17/2016 and 12/01/2016. He now has a progressing, painful, biopsy-proven right anterior chest wall recurrence in the setting of FDG-avid gastrohepatic lymphadenopathy. He returns today for initiation of treatment planning for palliative radiation therapy to the right anterior chest wall. - Interval History No new complaints. H&P - Exam - General Appears unchanged. - Vital Signs Vital Signs Temp Pulse Resp BP Pulse Ox 12/29/20 14:51 37.2 C 119 H 20 105/60 98 Pain rating is 4.
--- NOTE | 2020-12-29 10:42 | WPDRADIATPRO ---
Radiation Procedure Note - Date/Time Date/Time: 12/29/20 10:42 - Summary Summary: Procedure Date: 12/29/[address] SIMULATION PROCEDURE PURPOSE: The patient is undergoing a virtual CT simulation for external beam radiation treatment planning. Today?s CT dataset will be utilized for intensity modulated treatment planning (IMRT). TREATMENT SITE(S): Right Chest Wall NUMBER OF AREAS OR TAPIA: One treatment area was simulated today. NUMBER OF PORTS: IMRT using multiple static gantry angles, arcs, or helical tomotherapy will be needed to cover the treatment volume and adequately protect nearby critical normal tissues. The number of ports will be determined during the treatment planning process. EQUIPMENT USED: Simulation was performed on the department?s dedicated CT simulator. IMMOBILIZATION: An alpha cradle device was fabricated to immobilize the patient?s body in treatment position. CONTRAST MEDIA: The use of contrast was not required for this simulation. EXTERNAL MARKERS: No external markers were used. TATTOOS: Positioning tattoos were previously applied to the patient?s skin BLOCKING: An intensity map generated by multiple MLC-shaped beamlets of complex design will be constructed as part of an IMRT treatment plan. COMPENSATING FILTER / WEDGE: None ISODOSE PLAN: An IMRT treatment plan will be performed to precisely deliver a specified dose to the treatment volume with narrow margins and to protect adjacent critical normal tissues from receiving excessive radiation exposure. SCHEDULING Prior to delivering the first radiation fraction, a simulation will be performed on the linear accelerator utilizing electronic portal imaging to verify the isocenter location and block design. DAILY IMAGE GUIDANCE: Utilizing the integrated CT scanner on the Elek[employer] treatment machine, CT images through the treatment volume will be acquired daily prior to treatment to ensure precise patient positioning, thus allowing treatment of the tumor with narrow margins. MEDICAL NECESSITY FOR IMRT TREATMENT PLANNING: The target volume overlaps the prior treatment volume and is in close proximity to critical normal structures (lung, spinal cord, heart, esophagus). The target volume must be treated with narrow margins to adequately protect immediately adjacent structures in order to reduce the probability of radiation toxicity. IMRT is the only treatment modality that can achieve this, as opposed to conventional IMRT treatment planning. MEDICAL NECESSITY FOR IGRT TREATMENT PLANNING: The target volume has inherent setup variation as a result of respiratory motion. IGRT, in conjunction with respiratory gating, is the only treatment modality that can correct for daily variances in target volume location, further improving the therapeutic ratio over IMRT alone.
[2020-12-29 14:51] VITALS: BP 105/60; PULSE 119; RESP 20; TEMP 37.2; O2SAT 98
--- NOTE | 2020-12-29 15:40 | WPDONCRADTXP ---
Radiation Treatment Plan - Date/Time Date/Time: 12/29/20 15:40 - Summary Summary: CLINICAL TREATMENT PLAN PATIENT NAME: Anastacio Leslie PROCEDURE DATE: 12/29/2020 TREATMENT INTENT: Palliation SPECIAL TEST(S) INTERPRETED FOR TUMOR DELINEATION: none CHEMOTHERAPY CONSIDERATIONS: none PROTOCOL ENROLLMENT: none TREATMENT SITE(S): Right Chestwall NUMBER OF AREAS OR TAPIA: 1 treatment area(s) NUMBER OF TREATMENT PORTS: Multiple conformal arcs (number to be determined during treatment planning process) IMMOBILIZATION: Vac-Loc TREATMENT DEVICES: Custom blocks of complex design TREATMENT MODALITY: External photon beam PLANNED DOSE: 3750 cGy in 250 cGy fractions FRACTIONATION: QD TECHNIQUE CONTEMPLATED: IMRT, IGRT MEDICAL NECESSITY FOR IMRT TREATMENT PLANNING: The target volume is in close proximity to critical normal structures (lung, heart, esophagus, spinal cord, previously irradiated tissues) and must be treated with narrow margins to adequately protect immediately adjacent structures in order to reduce the probability of radiation toxicity. The dose required to deliver to the target volume exceeds the tolerance of these adjacent normal structures, which are so close that IMRT is the only treatment modality that can achieve this, as opposed to conventional 3D-treatment planning. MEDICAL NECESSITY FOR IGRT TREATMENT PLANNING: There is inherent patient setup variation that could result in geometric miss of the target volume and/or excessive dose delivery to the adjacent normal structures. IGRT is the only treatment modality that can correct for daily variances in target volume location, further improving the therapeutic ratio over IMRT alone.
--- NOTE | 2021-01-07 13:05 | PC.NURSE ---
Mr Anuj has complained about vomiting less than a teaspoon of pinkish tinged or a little darker blood at home he stated, he is here for treatment. After treatment is complete he spit up some phlegm with joan colored blood to it, and Dr Zaldivar is aware, she asked that if it gets more often or bright red he needs to go to the ER,and Mr Leslie verbalized the understanding. No other questions at this time.
--- NOTE | 2021-01-07 13:07 | WPDRADIATPRO ---
Radiation Procedure Note - Date/Time Date/Time: 01/07/21 13:07 - Summary Summary: PROCEDURE DATE: 01/07/2021 ISOCENTER VERIFICATION SIMULATION PURPOSE: The patient initially underwent virtual CT simulation. A simple simulation was performed on the linear accelerator utilizing the integrated cone-beam (CB) CT for isocenter verification prior to treatment delivery of the first fraction. EQUIPMENT USED: Simulation was performed on the linear accelerator. PROCEDURE DETAILS: This simulation was performed prior to the first radiation fraction to the RIGHT Chestwall Tumor. The patient was placed on the treatment couch with his body immobilized using a custom fabricated alpha-cradle in treatment position and aligned to the 3-point setup tattoos. A CB CT was acquired through the treatment area. The CB CT images were fused and aligned to the treatment planning CT image set. I reviewed the CT alignment images and made any necessary adjustments. Couch shifts were calculated in order to bring the patient into precise alignment prior to treatment delivery. ASSESSMENT: The isocenter alignment process was successful. ORDERS: Proceed with treatment as planned.
[2021-01-11 11:41] VITALS: BP 95/65; PULSE 99; RESP 110; TEMP 36.4; O2SAT 100
--- NOTE | 2021-01-11 11:41 | WPDRADONCOTV ---
Assessment and Plan - Additional Plan Tolerating radiotherapy but failure to thrive Imaging reviewed. Continue pain medications as needed. Rx for Megace provided. Increase PO intake - ensure or boost. Continue treatment as planned. Follow-up with Dr. Raya. On Treatment Visit - Date/Time of Treatment Date/Time: 01/11/21 11:41 Identifying data: Anastacio Leslie is a 60 y.o. 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 He completed a course of chemoradiotherapy between 10/17/2016 and 12/01/2016. He now has a progressing, painful, biopsy-proven right anterior chest wall recurrence in the setting of FDG-avid gastrohepatic lymphadenopathy. He is now undergoing palliative radiation therapy to the right anterior chest wall. Site: Right anterior chest wall Dose: 750 cGy of 3000 cGy Fraction: 12
[2021-01-18 11:05] VITALS: BP 88/56; PULSE 110; RESP 20; TEMP 36.4; O2SAT 100
--- NOTE | 2021-01-18 11:15 | WPDRADONCOTV ---
Assessment and Plan - Additional Plan Tolerating radiotherapy but failure to thrive. Likely depressed. Imaging reviewed. Continue pain medications as needed. Discussed with Dr. Raya - Pt may benefit from an SSRI. Continue PO intake - ensure or boost. Continue treatment as planned. Follow-up with Dr. Raya as planned. . On Treatment Visit - Date/Time of Treatment Date/Time: 01/18/21 11:15 History: Identifying data: Anastacio Leslie is a 60 y.o. 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 He completed a course of chemoradiotherapy between 10/17/2016 and 12/01/2016. He now has a progressing, painful, biopsy-proven right anterior chest wall recurrence in the setting of FDG-avid gastrohepatic lymphadenopathy. He is now undergoing palliative radiation therapy to the right anterior chest wall. Site: Right anterior chest wall Dose: 1750 cGy of 3000 cGy Fraction: 7 of 12 History: Feeling lack of motivation to get up on his feet and spends most of the day sitting in the recliner. He has been having more negative thoughts recently. Persistent pain. Taking pain medications. H&P - Exam - General Appears depressed. Cachectic. - Vital Signs Vital Signs - 24 hr 01/18/21 11:05 Temperature 36.4 C Pulse Rate 110 H Respiratory Rate 20 Blood Pressure 88/56 L Pulse Oximetry 100 Pain rating is 6. - Exam Integumentary: erythema (inframammary skin erythema with dusky appearance in the center of the rash. Skin is intact.)
[2021-01-25 10:37] VITALS: BP 88/60; PULSE 114; RESP 20; TEMP 36.5; O2SAT 99
--- NOTE | 2021-01-25 10:41 | WPDRADONCOTV ---
Assessment and Plan - Additional Plan Completed radiotherapy. Imaging reviewed. Continue pain medications as needed. Continue PO intake - ensure or boost. Return to clinic in 6 weeks or sooner as needed. Follow-up with Dr. Raya as planned. On Treatment Visit - Date/Time of Treatment Date/Time: 01/25/21 10:41 History: Identifying data: Anastacio Leslie is a 60 y.o. 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 He completed a course of chemoradiotherapy between 10/17/2016 and 12/01/2016. He now has a progressing, painful, biopsy-proven right anterior chest wall recurrence in the setting of FDG-avid gastrohepatic lymphadenopathy. He is now undergoing palliative radiation therapy to the right anterior chest wall. Site: Right anterior chest wall Dose: 3000 cGy of 3000 cGy Fraction: 12 of 12 History: No new complaints. He is feeling a little better. H&P - Exam - General Appears unchanged. Cachectic. Chronically ill-appearing. - Vital Signs Vital Signs - 24 hr 01/25/21 10:37 Temperature 36.5 C Pulse Rate 114 H Respiratory Rate 20 Blood Pressure 88/60 L Pulse Oximetry 99 Pain rating is 3. - Exam Integumentary: erythema (Erythema within Tx weldon. Mass smaller and softer. Skin is intact. )
--- NOTE | 2021-02-11 09:40 | WPDRADIATTXS ---
Radiation Treatment Summary - Date/Time Date/Time: 02/11/21 09:40 - Diagnosis Diagnosis: Anastacio Leslie is a 60 y.o. 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 He completed a course of chemoradiotherapy between 10/17/2016 and 12/01/2016. He now has a progressing, painful, biopsy-proven right anterior chest wall recurrence in the setting of FDG-avid gastrohepatic lymphadenopathy. He underwent a course of palliative radiation therapy to the right anterior chest wall between 01/07/2021 and 01/25/2021. - Narrative Narrative: TREATMENT DELIVERED The right chest wall received 3000 cGy delivered in 12 fractions of 250 cGy each through a VMAT technique in order to avoid excessive overlap with his prior radiotherapy weldon. CT-based treatment planning was utilized. His body was immobilized in treatment position with a custom fabricated alpha-cradle. TREATMENT COURSE He tolerated treatment very well, with minimal localized skin erythema and no other toxicity. DISPOSITION Unfortunately, he continued to decline and on 01/28/2021.
== END 2021-02-01 10:48 ==
LOC: AMCRADONC 10:00
PROVIDERS: PCP Internal Medicine; Referring Provider Internal Medicine Hematology & Oncology; Visit Provider Radiology Radiation Oncology
DX: Z51.0 Encounter for antineoplastic radiation therapy (principal); C34.11 Malignant neoplasm of upper lobe, right bronchus or lung; C76.1 Malignant neoplasm of thorax; R64 Cachexia; R06.02 Shortness of breath; L53.9 Erythematous condition, unspecified; R52 Pain, unspecified; K70.31 Alcoholic cirrhosis of liver with ascites; Z92.21 Personal history of antineoplastic chemotherapy; Z92.3 Personal history of irradiation; Z98.890 Other specified postprocedural states; Z79.899 Other long term (current) drug therapy
CPT/HCPCS: 29581; 36415; 77280; 77290; 77300; 77301; 77334; 77336; 77338; 77385; 80048; 80053; 85025; 96413; 99212; G0463; J9271

== ENCOUNTER 2021-01-27 15:26 | Emergency (ER) | payer OTHER, MEDICARE, MEDICAID, SELFPAY ==
[2021-01-27] VITALS (9 sets, daily range): BP systolic 83–107; BP diastolic 64–77; PULSE 120–180; RESP 13–33; TEMP 36.4; O2SAT 73–100
--- NOTE | ~2021-01-27 | XR_ITS ---
EXAMINATION: XR chest 1V portable DATE: 01/27/2021 16:05 INDICATION: Lung cancer presenting with constipation and lower abdominal pain. TECHNIQUE: frontal view of the chest was obtained. COMPARISON: Chest CT dated 11/16/2020 FINDINGS: Left lung is clear with no pleural effusion or pneumothorax. Large thick-walled cavitary mass in the right upper lung zone likely related to known history of lung cancer. There is a small right pleural effusion with relatively linear cephalad margin which can be seen in the setting of a hydropneumothor ax although no definitive gas component is appreciated. There is however free intraperitoneal gas bel ow the right hemidiaphragm. There is gaseous distention of the stomach underlying the left hemidiaphr agm. Heart size is normal. Right internal jugular central venous port catheter with distal tip at the caudal superior vena cava. IMPRESSION: 1. Small right pleural effusion with configuration suggesting the possibility of hydropneumothorax wi th small otherwise in discernible gas component. 2. Opacities at the right lower lung zone which could represent associated atelectasis and/or pneumon ia. 3. Free intraperitoneal gas below the right hemidiaphragm. This and the above findings were discussed with Dr. Westbrook at 4:12 PM. 4. Large thick-walled cavitary mass in the right upper lung zone consistent with given history of sienna g cancer. Reviewed, dictated and finalized at location A. IMPRESSION: 1. Small right pleural effusion with configuration suggesting the possibility o f hydropneumothorax with small otherwise in discernible gas component. 2. Opacities at the right lower lung zone which could represent associated atel ectasis and/or pneumonia. 3. Free intraperitoneal gas below the right hemidiaphragm. This and the above f indings were discussed with Dr. Westbrook at 4:12 PM. 4. Large thick-walled cavitary mass in the right upper lung zone consistent wit h given history of lung cancer.
--- NOTE | ~2021-01-27 | CT_ITS ---
EXAMINATION: CT chest abdomen pelvis w con DATE: 01/27/2021 16:47 INDICATION: Lung mass. Abdominal distention and free intraperitoneal gas on prior chest radiograph. TECHNIQUE: Computed tomography (CT) of the chest, abdomen, and pelvis was performed with 100 mL Omnip aque-350 intravenous contrast. Automated exposure control and iterative reconstruction technique were employed. The dose-length product was 758.15 mGy-cm. COMPARISON: PET/CT dated 11/26/2020 FINDINGS: CHEST CT: Again seen is a large thick-walled cavitary mass involving the entire right upper lobe which is likel y related to radiation treatment of a prior lung cancer. Small predominantly basilar right pleural ef fusion. Consolidation and patchy lung disease with some surrounding tree-in-bud opacities in the righ t lower lobe consistent with pneumonia. Additional mucous plugging and tree-in-bud opacities in the a erated portion of the right middle lobe also suspicious for pneumonia. There is consolidation and volume loss at the paramediastinal right middle lobe which demonstrated in creased FDG uptake on prior PET study suggesting local recurrence of a known lung cancer. There appea rs to be pericardial extension of malignancy with soft tissue infiltrating the pericardial fat surrou nding the still patent and contrast opacified right coronary artery. The malignancy also appears to i nvade the anterior lateral chapman of the right atrium and the anterior wall of the base of the right v entricle. Centrally fluid attenuation cavitary mass with some peripheral enhancing soft tissue invading the ant erior right chest wall surrounding several of the anterior right ribs with intervening ultrasound-lidya ded biopsy demonstrating squamous cell carcinoma. Heart size is normal. Thoracic aorta is normal in c aliber with no dissection. Right internal jugular central venous port catheter with distal tip at the superior cavoatrial junction where the inferior vena cava appears significantly narrowed by the surr ounding mass. Postoperative change of prior median sternotomy with a few small surgical clips in the superior mediastinum. There appears be occlusion of the left axillary, subclavian and brachiocephalic veins with injected contrast from the left upper extremity extending through multiple chest wall col laterals primarily to the bilateral hypogastric veins. Anterior right fifth and sixth rib thoracotomy defect. 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 ABDOMEN/PELVIS CT: Small to moderate amount of ascites scattered throughout the abdomen and pelvis with free intraperito haylee gas in the nondependent abdomen consistent with perforated viscus there is wall thickening at th e gastric antrum where there is suggestion of a few small gastric ulcers with perforated ulcer the mo st likely etiology for the free intraperineal gas. Nodular cirrhotic liver. Spleen, pancreas and bila teral adrenal glands are normal. Bilateral nonobstructing nephrolithiasis. 3.6 cm Bosniak 2 cyst at t he upper pole of the right kidney with small amount of calcification along the otherwise nearly indis cernible thin internal septation. Extensive colonic diverticulosis without focally more severe surrou nding inflammatory change to suggest diverticulitis. No bowel obstruction. Partially visualized inter nal fixation in the proximal femur extending cephalad to the neck. No suspicious lytic or blastic bon e lesions. IMPRESSION: 1. Small to moderate amount of ascites with free intraperitoneal gas. Most likely etiology appears to be perforated gastric ulcers with peptic ulcer disease and prominent wall thickening at the gastric antrum. 2. Invasive soft tissue mass involving the medial right middle lobe extending into the mediastinum an d anterior chest wall as well as along the pericardium, pericardial fat and the myocardium along the anterior late
--- NOTE | 2021-01-27 15:37 | ECG_ITS ---
Measurements Intervals [place] Rate: 122 P: 82 VA: 161 QRS: -80 QRSD: 83 T: 84 QT: 272 QTc: 388 Interpretive Statements SINUS TACHYCARDIA LOW QRS VOLTAGE IN PRECORDIAL LEADS ANTEROSEPTAL INFARCT, AGE INDETERMINATE INFERIOR INFARCT, AGE INDETERMINATE BORDERLINE ST-T WAVE ABNORMALITY- HIGH LATERAL LEADS BASELINE ARTIFACT- I, II, AVR, AVL,A VF, V1, V3-V6 ABNORMAL ECG Electronically Signed On 01-27-2021 19:48:36 CDT by Chico Alcala D.O.
--- NOTE | 2021-01-27 15:48 | ED.ABDPAIN ---
HPI - Abdominal Pain General Chief Complaint: Abdominal Pain Stated Complaint: ABD PAIN Time Seen by Provider: 01/27/21 15:31 Source: patient and RN notes reviewed Mode of arrival: EMS Limitations: no limitations History of Present Illness HPI narrative: This is a 60 year old male with metastatic lung cancer who presents for evaluation of abdominal pain. He developed right side abdominal pain yesterday. His pain radiates to his lower abdomen. His pain initially improved but it worsened again this afternoon. He also reports abdominal distention and constipation. His last bowel movement was 1 week ago but he states he is passing flatus. He denies fever, chest pain or worsening shortness of breath. He just finished radiation therapy for his lung cancer and he is due to start immunotherapy. His oncologist is Dr Naranjo. Related Data Home Medications Medication Instructions Recorded Confirmed albuterol mcg INHALATION 01/27/21 furosemide [Lasix] 40 mg PO DAILY 01/27/21 omeprazole 40 mg PO BID 01/27/21 spironolactone 25 mg PO BID 01/27/21 tramadol 50 mg PO Q4H PRN 01/27/21 Allergies Allergy/AdvReac Type Severity Reaction Status Date / Time No Known Allergies Allergy Verified 01/27/21 16:03 Review of Systems Review of Systems: All systems reviewed & are unremarkable except as noted in HPI and below Constitutional: Constitutional: Denies chills, Reports fatigue and Denies fever(s) PMFSH Past Medical History Medical History (Updated 01/27/21 @ 19:54 by Nery Westbrook MD) COPD (chronic obstructive pulmonary disease) Hyperlipidemia Hypothyroidism Metastatic primary lung cancer Non-small cell lung cancer Surgical History Surgical History (Updated 01/27/21 @ 19:46 by Nery Westborok MD) History of lung surgery Social History Social History Gender identity (if verbalized by the patient): Male Exam Const: General: alert and ill appearing acutely and chronically Nutritional Appearance: thin Orientation/consciousness: patient oriented x3 Chest: Other: right anterior large chest mass Resp: Effort & Inspection: not labored, no retractions and tachypneic Auscultation: clear to auscultation bilaterally and diminished lung sounds on the right Cardio: Rate: tachycardic Rhythm: regular rhythm Heart sounds: no murmurs GI: Inspection: distended GI Palp: Yes Soft to palpation, Yes Tenderness to palpation present (GI) (Diffuse), Yes Guarding due to palpation present (GI) and No Rigid due to palpation Auscultation: normal bowel sounds Skin: General skin exam: pallor Neuro: General: patient oriented x3 and moves all extremities Extrem: General: edema bilateral (leg edema up past knee) Psych: Mental Status: mental status grossly normal Affect: normal affect Course Reevaluation(s) Reevaluation #1: PAtient is now minimal responsive and hypotensive. I have discussed with patient's sister that he is going to and he will likely not survive the night. She states she understands she wants to proceed with hospice, comfort care DNR. Torrie is coming to see patient. Date: 01/27/21 Time: 19:52 Consultations Consultation #1: I spoke with Dr. Canela about patient with metastatic lung Cancer with perforated gastric ulcer. He states he will call OR team in Date: 01/27/21 Time: 17:20 Consultation #2: The [employer] and general anesthesiologist , Dr. Christie are at bedside talking to patient's sister who is POA. He discussed patient is not a good candidate for surgery. I discussed with sister that if surgery is not done he is going to . Anesthesiologist is concerned with patient's tumor invading into his myocardium that he will not survive the surgery. Sister states patient has been decompensating for 2 months. She will speak to her mother about making patient comfort care. She states patient told his mother last night that he wanted it all to end. Date: 01/27/21 Time: 17:50 Consultation #3:
[2021-01-27 15:52] LABS: Alveolar/Arterial O2 Gradient 101.5 mmHg; Base Excess ABG 5.7 mEq/l (+/-2.0); Carboxyhemoglobin 6.2 % THb (0-2.0); Fractional Inspired Oxygen 36 %; HCO3 ABG 31.4 mEq/l (22.0-26.0); Methemoglobin ABG 0.1 %THb (0-1.5); Oxygen Content ABG 14.9 %vol (16.0-22.0); Oxygen Saturation ABG 97.3 % (95.0-100.0); Oxyhemoglobin 90.7 % THb (90.0-100.0); PCO2 ABG 50.9 mmHg (35.0-45.0); PO2 ABG 96.1 mmHg (80.0-100.0); PO2 FiO2 Ratio Arterial Blood 2.67 %; Total Hemoglobin 11.6 g/dL (12.0-18.0); pH ABG 7.408 (7.350-7.450)
[2021-01-27 15:53] LABS: Device NASAL CANNULA; Modified Allen's Test Pass; Site Drawn RIGHT RADIAL
[2021-01-27] MEDS: ONDANSETRON INJ 4 MG/2 ML VIAL IV PUSH (15:55)
[2021-01-27] MEDS: HYDROmorphone HCL INJ (*CRX) 1 MG/ML SYR IV PUSH (15:56)
[2021-01-27] MEDS: Please add drug allergy info to patient profile. 1 EACH XX (16:04)
[2021-01-27] MEDS: SODIUM CHLORIDE 0.9% IV 1,000 ML 999 ML IV CONT ×2 (16:13→17:52)
--- NOTE | 2021-01-27 16:13 | PC.NURSE ---
1 L of NS infused from EMS, order clarified from EDP Dr. Westbrook and second liter infusing at this time.
[2021-01-27 16:19] LABS: Basophils Absolute Auto 0.1 K/mm3 (0.0-0.1); Basophils Percent Auto 0.3 % (0.2-1.2); Hematocrit 36.3 % (42.0-52.0); Hemoglobin 10.8 g/dL (14.0-18.0); Immature Granulocyte Absolute 0.16 K/mm3 (0.00-0.031); Immature Granulocyte Percent A 0.9 % (0-0.5); Lymphocytes Percent Auto 1.1 % (18.3-44.2); Mean Corpuscular HGB Conc 29.8 g/dl (32-36); Mean Corpuscular Hemoglobin 26.1 pg (26-34); Mean Corpuscular Volume 87.7 fl (80-100); Mean Platelet Volume 9.2 fl (7.4-10.4); Monocytes Absolute Auto 0.9 K/mm3 (0.1-0.6); Monocytes Percent Auto 4.8 % (2.6-8.5); Neutrophils Absolute Auto 17.4 K/mm3 (1.3-6.7); Neutrophils Percent Auto 92.9 % (45.5-73.1); Platelet Count Result 336 k/mm3 (150-375); Red Blood Count 4.14 M/mm3 (4.6-6.20); Red Cell Distribution Width 22.9 % (11.5-14.5); White Blood Count 18.7 K/mm3 (4.5-10.0)
[2021-01-27 16:21] LABS: Glucose Point of Care 120 mg/dl (65-105)
[2021-01-27 16:21] LABS: INR 1.2; Prothrombin Time 14.8 Seconds (11.1-14.7)
[2021-01-27 16:22] LABS: Partial Thromboplastin Time 30.1 SECONDS (22.3-36.8)
[2021-01-27 16:27] LABS: Lactic Acid Reflex 2.1 mmol/L (0.7-2.1)
[2021-01-27 16:28] LABS: Alanine Aminotransferase 17 U/L (4-50); Albumin Level 2.9 g/dL (3.5-5.1); Alkaline Phosphatase 303 U/L (38-126); Anion Gap 5 mmol/L (8-16); Aspartate Amino Transferase 28 U/L (17-59); Bilirubin,Total 0.9 mg/dL (0.2-1.3); Blood Urea Nitrogen 55 mg/dL (9-20); Calcium 10.7 mg/dL (8.4-10.2); Carbon Dioxide 36 mmol/L (22-30); Chloride 93 mmol/L (98-107); Estimated CRCL calculation 56 ml/min; Estimated Glomerular Filt Rate > 60; Glucose 123 mg/dL (65-110); Potassium 4.4 mmol/L (3.4-5.0); Sodium 134 mmol/L (137-145)
[2021-01-27 16:35] LABS: Lipase < 10 U/L (23-300)
[2021-01-27 16:47] LABS: Hypochromasia 1+ (NORMAL); Platelet Estimate Adequate (Adequate)
[2021-01-27 16:48] LABS: Ovalocytes 1+ (NORMAL); Target Cells 1+ (NORMAL)
--- NOTE | 2021-01-27 17:50 | PC.NURSE ---
Sister at bedside discussing POC w/ EDP Dr Westbrook and OR team. Pt sister states she wishes to discuss risks/outcome prior to giving consent to surgery with her mother and will inform EDP of decision.
--- NOTE | 2021-01-27 18:30 | PC.NURSE ---
called [facility] for hospice per Dr Westbrook
[2021-01-27 19:10] LABS: Reflex Lactic Acid Yes or No Add Lactic
--- NOTE | 2021-01-27 20:22 | PC.NURSE ---
hospice at bedside at this time.
[2021-01-27] MEDS: MORPHINE SULFATE (*CRX) 2 MG/ML INJ (22:33)
--- NOTE | 2021-01-27 22:34 | PC.NURSE ---
Hospice nurse at bedside talking w/ family. gave pt 1mg of IV morphine per hospice nurse per Dr. Roger.
[2021-01-28 00:18] VITALS: BP 56/34; PULSE 95; RESP 15; O2SAT 48
--- NOTE | 2021-01-28 00:37 | PC.NURSE ---
hospice nurse called time of . time of 0032.
--- NOTE | 2021-01-28 03:00 | PC.NURSE ---
pt taken to [facility] at 0240.
== END 2021-01-28 00:32 | disposition expired ==
PROVIDERS: Emergency Provider General Practice
DX: K63.1 Perforation of intestine (nontraumatic) (principal); A41.9 Sepsis, unspecified organism; R65.21 Severe sepsis with septic shock; C79.9 Secondary malignant neoplasm of unspecified site; C34.90 Malignant neoplasm of unspecified part of unspecified bronchus or lung; J44.9 Chronic obstructive pulmonary disease, unspecified; E78.5 Hyperlipidemia, unspecified; E03.9 Hypothyroidism, unspecified
CPT/HCPCS: 36415; 36600; 71045; 71260; 74177; 80053; 82375; 82805; 82948; 83050; 83605; 83690; 85025; 85610; 85730; 93005; 96361; 96365; 96375; 99284; J1170; J2270; J2405; J2543; J7030; Q9967